=== PATIENT | male | born 1960 | race Caucasian/White ===

== ENCOUNTER 2017-02-19 08:57 | Emergency (ER) | payer OTHER | END 2017-02-19 10:51 | disposition home or self-care (01) | LOC: FER 08:57 | DX: S46.911A Strain of unspecified muscle, fascia and tendon at shoulder and upper arm level, right arm, initial encounter (principal); I10 Essential (primary) hypertension; Z86.73 Personal history of transient ischemic attack (TIA), and cerebral infarction without residual deficits; Z79.899 Other long term (current) drug therapy; W10.9XXA Fall (on) (from) unspecified stairs and steps, initial encounter; Y92.009 Unspecified place in unspecified non-institutional (private) residence as the place of occurrence of the external cause | CPT/HCPCS: 73030; J1885 ==

== ENCOUNTER 2021-05-26 20:45 | Inpatient (IN) | payer OTHER ==
[~2021-05-26] VITALS: Ht 172.7 cm; Wt 94.6 kg
[~2021-05-26 20:45] MED LIST: ASPIRIN EC81 MG PO; ATARAX25 MG PO; BACLOFEN 10MG T10 MG PO; CETIRIZINE HCL10 MG PO; CYMBALTA 30MG C30 MG PO; DEPAKOTE ER250 MG PO; DISALCID750 MG PO; LOVAZA1 GM PO; MEDROL 4MG DOSEP4 MG PO; METFORMIN HCL500 MG PO; NEURONTIN800 MG PO; NORVASC5 MG PO; PAROXETINE HCL30 MG PO; PROTONIX 40MG T40 MG PO; ZOCOR20 MG PO; ZOFRAN ODT4 MG SL
[2021-05-26 21:53] LABS: BASOPHIL 0.2 % (0-2); EOSINOPHIL 0 % (0-5); HCT 42.4 % (42.0-52.0); HGB 14.6 g/dl (13.2-18.0); LYMPHOCYTE 21.4 % (15-48); MCH 31.2 pg (25.0-31.0); MCHC 34.4 g/dL (32.0-36.0); MCV 90.6 fL (78.0-100.0); MONOCYTE 7.1 % (0-12); MPV 10.4 fL (6.0-9.5); NEUTROPHIL 70.3 % (41-80); NRBC 0; PLT 129 K/uL (150-400); RBC 4.68 M/uL (4.70-6.00); WBC 4.1 K/uL (4.0-10.5)
[2021-05-26 22:11] LABS: ALBUMIN 3.2 g/dL (3.4-5.0); BILIRUBIN - TOTAL 0.6 mg/dL (0.2-1.0); BUN/CREAT RATIO (CALC) 17.4 RATIO; CREATININE 0.92 mg/dL (0.67-1.17); GLOBULIN (CALCULATION) 4.5 g/dL; POTASSIUM 4.9 mmol/L (3.5-5.1); TOTAL PROTEIN 7.7 g/dL (6.4-8.2)
[2021-05-26 22:33] LABS: CORONAVIRUS 2019 SARS-COV-2 POSITIVE (NEGATIVE)
[2021-05-26 23:11] LABS: INFLUENZA A NAA NEGATIVE (NEGATIVE)
[2021-05-27 08:58] LABS: C-REACTIVE PROTEIN 6.4 mg/dL (<=0.90)
[2021-05-28 07:06] LABS: BASOPHIL 0.4 % (0-2); EOSINOPHIL 0 % (0-5); HGB 13.7 g/dl (13.2-18.0); LYMPHOCYTE 20.8 % (15-48); MCH 30.9 pg (25.0-31.0); MCHC 34.3 g/dL (32.0-36.0); MCV 90.3 fL (78.0-100.0); MONOCYTE 5.9 % (0-12); MPV 10.1 fL (6.0-9.5); NRBC 0; PLT 179 K/uL (150-400); RBC 4.43 M/uL (4.70-6.00); RDW 14.2 % (11.5-14.0); WBC 5.2 K/uL (4.0-10.5)
[2021-05-28 07:31] LABS: BUN/CREAT RATIO (CALC) 27.7 RATIO; CREATININE 0.83 mg/dL (0.67-1.17); POTASSIUM 4.2 mmol/L (3.5-5.1)
[2021-05-30 10:10] LABS: BASOPHIL 0.5 % (0-2); EOSINOPHIL 0 % (0-5); HCT 39.5 % (42.0-52.0); HGB 13.4 g/dl (13.2-18.0); LYMPHOCYTE 28.1 % (15-48); MCH 30.5 pg (25.0-31.0); MCHC 33.9 g/dL (32.0-36.0); MONOCYTE 5.9 % (0-12); MPV 9.9 fL (6.0-9.5); NEUTROPHIL 62.4 % (41-80); NRBC 0; PLT 222 K/uL (150-400); RBC 4.39 M/uL (4.70-6.00); RDW 13.8 % (11.5-14.0)
[2021-05-30 10:28] LABS: ALBUMIN 2.8 g/dL (3.4-5.0); BILIRUBIN - TOTAL 0.5 mg/dL (0.2-1.0); BUN/CREAT RATIO (CALC) 32.4 RATIO; CREATININE 0.74 mg/dL (0.67-1.17); GLOBULIN (CALCULATION) 4.1 g/dL; MAGNESIUM 2.1 mg/dL (1.8-2.4); POTASSIUM 3.8 mmol/L (3.5-5.1); TOTAL PROTEIN 6.9 g/dL (6.4-8.2)
[2021-05-30 10:31] LABS: WBC 5.8 K/uL (4.0-10.5)
[2021-05-30] MEDS ORDERED: DEXAMETHASONE 2M2 MG PO ×2 (13:36→13:37)
--- NOTE | 2021-05-30 17:39 | NUR ---
CALLED [facility] AT 1230 TO VERIFY FAX HAD BEEN RECEIVED ABOUT SETTING UP OXYGEN FOR PATIENT, BOTH PORTABLE TANK TO GO HOME AND O2 CONCENTRATOR AT PATIENT'S HOME. RN CALLED [phone], WAS TOLD BY FIELD MARKETING REPRESENTATIVELAUNDRY SUPERINTENDENT NEEDED TO CALL [phone]. RN CALLED THAT NUMBER AND WAS TOLD TO CALL [phone]. CALLED THIS NUMBER TO REQUEST OXYGEN SETUP AND WAS TOLD TO FAX FACE SHEET AND ORDER TO [phone]. ORDER AND FACE SHEET WAS FAXED AT 12:51PM. CALLED [facility] AT [phone] AT 1430 TO INQUIRE ABOUT OXYGEN DELIVERY AND WAS TOLD PAPERWORK WAS RECEIVED AND OXYGEN WOULD BE DELIVERED AND [employer] PROGRAM MANAGER HAS SEVERAL DELIVERIES TODAY. SPOKE WITH RN INTERNATIONAL AT [phone] ABOUT OXYGEN NOT BEING DELIVERED YET. GAVE RN INTERNATIONAL ABOVE NUMBER. RECEIVED MESSAGE THAT OXYGEN WAS ENROUTE AND [facility] OFFICE WAS GOING TO ATTEMPT TO GET AN ETA AND CALL US BACK
== END 2021-05-30 19:40 | disposition home or self-care (01) | DRG 177 ==
LOC: FER 20:45 → FMS 05-27 11:02
PROVIDERS: Emergency Medicine; Nurse Practitioner Adult Health; ADMIT Internal Medicine
PROC: 8E0ZXY6 Isolation (ICD-10-PCS; principal; 2021-05-27)
PROC: XW033E5 Introduction of Remdesivir Anti-infective into Peripheral Vein, Percutaneous Approach, New Technology Group 5 (ICD-10-PCS; 2021-05-27)
PROC: XW033G6 Introduction of REGN-COV2 Monoclonal Antibody into Peripheral Vein, Percutaneous Approach, New Technology Group 6 (ICD-10-PCS; 2021-05-27)
PROC: XW0DXM6 Introduction of Baricitinib into Mouth and Pharynx, External Approach, New Technology Group 6 (ICD-10-PCS; 2021-05-28)
DX: U07.1 COVID-19 (principal); J96.01 Acute respiratory failure with hypoxia; J12.82 Pneumonia due to coronavirus disease 2019; I10 Essential (primary) hypertension; E11.9 Type 2 diabetes mellitus without complications; Z86.73 Personal history of transient ischemic attack (TIA), and cerebral infarction without residual deficits; Z98.890 Other specified postprocedural states
CPT/HCPCS: 36415; 36600; 71045; 71275; 80048; 80053; 82728; 82803; 83605; 83615; 83735; 84145; 84484; 85025; 85379; 86140; 93005; 94640; 94664; 94667; 94668; C9399; J0456; J1100; J1650; J2405; J2930; J7030; J7050; M0243; Q9967; U0002

== ENCOUNTER 2021-11-12 18:58 | Emergency (ER) | payer OTHER ==
[~2021-11-12 18:58] MED LIST changes: +DEXAMETHASONE 2M2 MG PO
[2021-11-12 20:58] LABS: BILIRUBIN NEGATIVE (NEGATIVE); BLOOD NEGATIVE Ery/uL (NEGATIVE); CLARITY CLEAR (CLEAR); COLOR YELLOW (YELLOW); GLUCOSE (U) NORMAL (NORMAL); LEUKOCYTES NEGATIVE Leu/uL (NEGATIVE); NITRITE NEGATIVE (NEGATIVE); PROTEIN NEGATIVE (NEGATIVE); SPECIFIC GRAVITY 1.025 (1.001-1.030); UROBILINOGEN 0.2 mg/dL (0.2-1.0); pH 6.5 (5.0-9.0)
[2021-11-12 20:58] LABS: BASOPHIL 0.6 % (0-2); EOSINOPHIL 1.7 % (0-5); HCT 40.8 % (42.0-52.0); HGB 14.3 g/dl (13.2-18.0); LYMPHOCYTE 31.5 % (15-48); MCH 31.7 pg (25.0-31.0); MCV 90.5 fL (78.0-100.0); MONOCYTE 7.5 % (0-12); MPV 10.1 fL (6.0-9.5); NEUTROPHIL 58.3 % (41-80); NRBC 0; PLT 171 K/uL (150-400); RBC 4.51 M/uL (4.70-6.00); RDW 13.7 % (11.5-14.0)
[2021-11-12 21:16] LABS: ALBUMIN 4.2 g/dL (3.4-5.0); BILIRUBIN - TOTAL 0.3 mg/dL (0.2-1.0); BUN/CREAT RATIO (CALC) 11.2 RATIO; CREATININE 0.89 mg/dL (0.67-1.17); GLOBULIN (CALCULATION) 3.4 g/dL; TOTAL PROTEIN 7.6 g/dL (6.4-8.2)
[2021-11-12] MEDS ORDERED: BACLOFEN 10MG T10 MG PO (22:33)
[2021-11-12] MEDS ORDERED: NAPROXEN500 MG PO (22:33)
== END 2021-11-12 22:40 | disposition home or self-care (01) ==
LOC: FER 18:58
PROVIDERS: Nurse Practitioner Family
DX: S39.011A Strain of muscle, fascia and tendon of abdomen, initial encounter (principal); S80.812A Abrasion, left lower leg, initial encounter; E11.9 Type 2 diabetes mellitus without complications; I10 Essential (primary) hypertension; V29.9XXA Motorcycle rider (driver) (passenger) injured in unspecified traffic accident, initial encounter
CPT/HCPCS: 36415; 71260; 80053; 81003; 82150; 83690; 85025; 93005; J1100; J1885; J7030; Q9967

== ENCOUNTER 2022-02-26 12:23 | Emergency (ER) | payer OTHER ==
[~2022-02-26 12:23] MED LIST changes: +NAPROXEN500 MG PO
[2022-02-26 14:09] LABS: INFLUENZA A NAA NEGATIVE (NEGATIVE)
[2022-02-26 14:10] LABS: CORONAVIRUS 2019 SARS-COV-2 POSITIVE (NEGATIVE)
[2022-02-26] MEDS ORDERED: PAXLOVID 150-11 EACH PO (14:49)
== END 2022-02-26 15:13 | disposition home or self-care (01) ==
LOC: FER 12:23
PROVIDERS: Physician Assistant
DX: U07.1 COVID-19 (principal); I10 Essential (primary) hypertension; E11.9 Type 2 diabetes mellitus without complications; Z28.311 Partially vaccinated for COVID-19
CPT/HCPCS: 87880; 99283; U0002